=== PATIENT | female | born 1990 | race Caucasian/White ===

== ENCOUNTER → 2017-03-18 | Day surgery (SDC) | payer OTHER ==
[~2017-03-18] MED LIST: HYDROmorphone 2 MG/ML VIAL IV PRN; IV RINGERS,LACTATED 1000ML 1,000 ML IV SCH; LAMO200T3 PO; LIDOCAINE 1% 1 ML SYRINGE. ID PRN; LIDOCAINE 2% PF Vial for OR 5 ML VIAL. ONE; MORPHINE SULFATE 2 MG/ML DISP.SYRIN. IV PRN; ONDANSETRON PF 4 MG/2 ML VIAL. IV PRN; PROCHLORPERAZINE 10 MG/2 ML VIAL. IV PRN; PROPOFOL 20 ML IV ONE; fentaNYL PF VIAL 100 MCG/2 ML VIAL IV PRN
--- NOTE | 2017-03-18 08:30 | PDOC2 ---
CONSULT Date of Consult Date of Consult DATE: 03/18/17 TIME: 08:25 Reason for Consult Reason for Consult: abd pain Identification/Chief Complaint Chief Complaint patient is seen with epigastric abdominal pain associated with n/v and constipation. Prior Ct scan was unrevealing. FHX is positive for PUD and GB disease. Weight is stable despite poor appetite. Nexium 40 mg daily is well tolerated and Zofran 4 mg helps with the nausea. EGD to further assess. Problems: Past Medical History GI: Constipation, Other (pancreatitis) Past Surgical History Past Surgical History: Tonsillectomy, Other (tubal ligation) Family History Family History: Diabetes, Heart Disease, Hypertension Social History 1 pack per day Current Medications Current Medications Current Medications Ondansetron HCl (Zofran) 4 mg PRN Q6HRS PRN IV NAUSEA/VOMITING; Start 03/17/17 at 07:00; Stop 03/18/17 at 06:59; Status UNV Fentanyl Citrate (Fentanyl 2ml Vial) 25 mcg PRN Q5MIN PRN IV MILD PAIN; Start 03/17/17 at 07:00; Stop 03/18/17 at 06:59; Status UNV Fentanyl Citrate (Fentanyl 2ml Vial) 50 mcg PRN Q5MIN PRN IV MODERATE PAIN; Start 03/17/17 at 07:00; Stop 03/18/17 at 06:59; Status UNV Morphine Sulfate 1 mg PRN Q10MIN PRN IV SEVERE PAIN; Start 03/17/17 at 07:00; Stop 03/18/17 at 06:59; Status UNV Ringer's Solution 1,000 ml @ 30 mls/hr Q24H IV ; Start 03/17/17 at 07:00; Stop 03/17/17 at 18:59; Status UNV Lidocaine HCl 2 ml PRN 1X PRN ID PRIOR TO IV START; Start 03/17/17 at 07:00; Stop 03/18/17 at 06:59; Status UNV Hydromorphone HCl (Dilaudid) 0.5 mg PRN Q10MIN PRN IV SEV PAIN, Second choice; Start 03/17/17 at 07:00; Stop 03/18/17 at 06:59; Status UNV Prochlorperazine Edisylate (Compazine) 5 mg PACU PRN PRN IV NAUSEA, MRX1; Start 03/17/17 at 07:00; Stop 03/18/17 at 06:59; Status UNV Physical Exam Lungs: Clear to auscultation Heart: Normal S1, Normal S2 Abdomen: Normal bowel sounds, Other (epigastric tenderness to palpation) Assessment/Plan Assessment/Plan Abd pain- with n/v, differential includes PUD , gastroparesis, and/or celiac disease. Plan EGD to further assess. If negative GES to follow as o/p LEONID MATTHEWS MD Mar 18, 2017 08:30
[2017-03-18 08:53] LABS: NEG OBC UR NEG; POS OBC UR POS
[2017-03-18 09:20] VITALS: BP 115/77
== END | disposition home or self-care (01) ==
LOC: ENDOS 08:16
PROVIDERS: ATTEND Internal Medicine Gastroenterology
DX: K29.50 Unspecified chronic gastritis without bleeding (principal); Z98.51 Tubal ligation status; Z86.39 Personal history of other endocrine, nutritional and metabolic disease; F41.9 Anxiety disorder, unspecified; Z72.0 Tobacco use
CPT/HCPCS: 43235; 81025; J2704